=== PATIENT | female | born 1945 | race Caucasian/White ===

== ENCOUNTER → 2017-08-31 | Outpatient (CLI) | payer OTHER ==
[~2017-08-31] MED LIST: ADVAIR HFA 230M12 GM INH; AUGMENTIN 875875 MG PO; COMBIVENT INH; DUONEB 2.5-0.5 M3 ML INH; FLOMAX0.4 MG PO; LEVAQUIN 500 M500 M2 PO; PREDNISONE 10 M10 MG PO; PROTONIX40 M1 PO; SERTRALINE HCL50 MG PO; SINGULAIR 10 MG10 M1 PO; TYLENOL EXTRA500 MG PO
== END ==
LOC: M.RAD 08:55
DX: Z01.818 Encounter for other preprocedural examination (principal); R06.02 Shortness of breath

== ENCOUNTER 2018-03-06 07:42 | Inpatient (IN) | payer OTHER ==
[~2018-03-06] VITALS: Ht 152.4 cm; Wt 120.7 kg
[~2018-03-06 07:42] MED LIST changes: -ADVAIR HFA 230M12 GM INH
[2018-03-06 07:43] VITALS: BP 140/76
[2018-03-06] MEDS ORDERED: ADVAIR HFA 230M12 GM INH (07:50)
[2018-03-06 08:07] LABS: HEMATOCRIT 44.8 % (37.0-47.0); HEMOGLOBIN 14.9 gm/dL (12.0-15.0); MCH 30.1 pg (26.0-34.0); MCHC 33.2 g/dL (28.0-37.0); MCV 90.7 fL (80.0-100.0); MPV 8.3 fl. (7.2-11.1); NUCLEATED RBCS 0 /100WBC; PLATELET COUNT* 132 thou/uL (150-400); RBC 4.94 mil/uL (4.20-5.00); RDW-CV 14.2 % (10.5-14.5); WBC 14.9 thou/uL (4.0-11.0)
[2018-03-06 08:12] LABS: INFLUENZA A ANTIGEN None Detected (None Detect); INFLUENZA B ANTIGEN None Detected (None Detect)
[2018-03-06 08:15] LABS: ANION GAP 7 mmol/L (7-16); BUN 12 mg/dL (7-18); CALCIUM 8.1 mg/dL (8.5-10.1); CHLORIDE 105 mmol/L (98-107); CO2 28 mmol/L (21-32); GLUCOSE 110 mg/dL (70-99); SODIUM 140 mmol/L (136-145)
[2018-03-06 08:17] LABS: APTT 27.5 Seconds (25.0-31.3); INR 1.1
[2018-03-06 08:26] LABS: ALBUMIN 2.8 g/dL (3.4-5.0); ALKALINE PHOSPHATASE 88 U/L (46-116); LIPASE 202 U/L (73-393); MAGNESIUM 1.2 mg/dL (1.8-2.4); NT-PRO BRAIN NAT PEPTIDE 448 pg/mL (<300); SGOT 31 U/L (15-37); SGPT 30 U/L (30-65); TOTAL BILIRUBIN 1.1 mg/dL (<0.1-1.0); TOTAL PROTEIN 6.7 g/dL (6.4-8.2); TROPONIN-I LEVEL <0.06 ng/mL (<0.06)
[2018-03-06 08:29] LABS: BE -2.5 mmol/L (-2 to +3); HCO3 21.5 mmol/L (22.0-26.0); PCO2 35.1 mmHg (35.0-45.0); PO2 60.2 mmHg (75.0-100.0); pH 7.404 (7.340-7.450)
[2018-03-06 08:43] LABS: ABSOLUTE LYMPHOCYTES 0.4 thou/uL (0.8-5.3); ABSOLUTE MONOCYTES 0.6 thou/uL (0.0-1.2); ABSOLUTE NEUTROPHILS 13.9 thou/uL (1.6-8.1); PLATELET ESTIMATE ADEQUATE
--- NOTE | 2018-03-06 08:43 | NUR ---
PT INCONTINENT OF URINE AND STOOL. PT ASSISTED WITH CLEANING UP AND GIVEN CLEAN UNDERWEAR
[2018-03-06 08:56] LABS: URINE BILIRUBIN NEGATIVE (Negative); URINE BLOOD 2+ (Negative); URINE CLARITY CLEAR; URINE COLOR YELLOW; URINE GLUCOSE-RANDOM NEGATIVE (Negative); URINE KETONES NEGATIVE (Negative); URINE PROTEIN 1+ (Negative); URINE UROBILINOGEN 0.2 E.U./dl (0.2-1.0)
[2018-03-06 09:04] LABS: URINE LEUKOCYTES-REFLEX 3+ (Negative); URINE NITRITE-REFLEX POSITIVE (Negative)
[2018-03-06 09:11] LABS: SQUAMOUS 4-10 Moderate /LPF (0-3); URINE WBC-REFLEX >25 Many /HPF (0-5)
[2018-03-06 09:12] LABS: BACTERIA-REFLEX >30 Many /HPF (None Seen); CASTS None Seen /LPF (None Seen); CRYSTALS None Seen /LPF (None Seen); MUCUS None Seen strn/LPF (None Seen)
[2018-03-06 10:25] VITALS: BP 148/67
[2018-03-06 12:00] VITALS: BP 100/54
--- NOTE | 2018-03-06 12:27 | NUR ---
RECIEVED REPORT FROM NIKKO MAHONEY IN ER OF EXPECTED TRANSFER AT 1015- DX: RESPIRATORY FAILURE, COPD EXACERBATION, BRONCHITIS, AND UTI- PT ARRIVED TO ROOM 231 VIA CART WITH ASSIST X1 TO BED- UNDER THE CARE OF - BUNG REMOVER PLACED INDICATED, TRACING SR/ST- UPON ASSESSMENT PT NOTED TO BE A&O X4- CONTINENT OF BOWEL AND BLADDER- SBA WITH TRANSFERS FOR SAFETY- WHEEZING NOTED WITH NON-PRODUTIVE COUGH- LABORED BREATHING NOTED AT TIME- DYSPNEA NOTED ON EXERTION- VS 99.7 22 136/66 87 96% ON 2L VIA NC- ABDOMEN OBESE/SOFT/NON-TENDER, BS X 4 QUADS- PT REPORTS TO HAVE HAD GOOD SIZE BM THIS AM- TRACE EDEMA NOTED TO BLE- IV NOTED TO LEFT FA INTACT, IVF STARTED UPON ADMISSION PRESCIBED- PT NOTED TO HAVE RECIEVED IV ABT PRIOR TO TRANSFER FROM ER- SKIN C/D/I, SLIGHT PINKNESS NOTED TO BUTTOCKS- EYE SIGHT ADEQUITE WITH GLASSES IN PLACE- NOTED TO HAVE UPPER ANE LOWER DENTURES- PT RATES PAIN 5/10 TO LEFT UPPER ABD QUAD THAT COMES AND GOES- CALL LIGHT AND PERSONAL BELONGINGS WITH IN REACH- HOURLY ROUNDS IN PLACE R/T SAFETY/NEEDS- ALL NEEDS MET AT THIS TIME-WCTM
[2018-03-06 16:00] VITALS: BP 133/49
--- NOTE | 2018-03-06 16:50 | NUR ---
PT YANET SETTING UP ON SIDE OF BED WITH DAUGHTER AT SIDE VISITING- VEGETABLE HARVEST WORKER IN PLACE ORDERED, TRACING ST/SR THIS SHIFT- IV TO RIGHT WRIST INTACT, IVF INFUSSING PRESCRIBED- MG NOTED TO BE 1.2 ON ADMISSION- ORDERS OBTAINED PER FOR ELECTROLYTE PROTOCOL- IV MAG CURRENTLY INFUSSING INDICATED, WITH LAB DRAW TO FOLLOW- GOOD PO INTAKE NOTED WITH MEALS- MAKES NEEDS KNOWN- ALL NEEDS MET AT THIS TIME-WCTM
--- NOTE | 2018-03-06 18:14 | EKG ---
[place] [address] ELECTROCARDIOGRAM REPORT Name: Julisa LEAL Room: [address] ADM IN R.#: [id number] Admission: 03/06/18 Attend Phys: Phoebe Aiken Discharge: Date of : 43 Report #: [id number] THIS REPORT FOR: //name// [facility] ED Test Date: 2018-03-06 Test Time: 08:20:50 Pat Name: Julisa LEAL Department: Room: [facility] Gender: F Student Outreach Coordinator: MACARIO : 1945 Requested By: Schuyler Macias Order Number: [id number] MD: Gold Rosales Measurements Intervals Proctor Rate: 108 P: 67 FL: 164 QRS: 2 QRSD: 92 T: 63 QT: 324 QTc: 435 Interpretive Statements Sinus tachycardia poor r wave progression Atrial premature complexes Low voltage, extremity and precordial leads Baseline wander in lead(s) V4 Compared to ECG 08/08/2015 09:20:41 no change Electronically Signed On 03-06-2018 18:14:06 CDT by Gold Rosales [email or web address] <ELECTRONICALLY SIGNED> By: Gold Rosales MD, [facility] 03/06/18 1814 0820 Gold Rosales MD, [facility] /EPI
[2018-03-06 20:00] VITALS: BP 115/54
[2018-03-06 23:55] VITALS: BP 142/67
[2018-03-07 04:00] VITALS: BP 108/38
[2018-03-07 05:16] LABS: HEMATOCRIT 42.4 % (37.0-47.0); HEMOGLOBIN 13.6 gm/dL (12.0-15.0); MCH 29.3 pg (26.0-34.0); MCHC 32.1 g/dL (28.0-37.0); MCV 91.3 fL (80.0-100.0); MPV 8.8 fl. (7.2-11.1); RBC 4.65 mil/uL (4.20-5.00); RDW-CV 14.3 % (10.5-14.5); WBC 14.9 thou/uL (4.0-11.0)
--- NOTE | 2018-03-07 06:27 | NUR ---
ASSUMED PT CARE REPORT RECEIVED FROM NURSE. PT IS ALERT AWAKE ORIENTED X4 SINUS RYTHM ON THE MONITOR. SHE SOUNDS CONGESTED . SOLUMEDROL ADMISTERED. IN NS IINFUSING AT 100 PER HOUR. IV LINE PATENT, DRESSING WAS CHANGED. ON 2 L NC AND SATURATION REMAINS ABOVE 95%. PT COMPLAINT OF PAIN IN RIGHT LOWER QUADRANT LAST NIGHT. TYLENOL WS GIVEN. NO MORE PAIN AT THIS MOMENT. SHE SLEPT DURING THE NIGHT. CALL LLIGHT AT REACH,BED IN LOWEST POSITION.
[2018-03-07 07:41] VITALS: BP 114/64
--- NOTE | 2018-03-07 09:42 | NUR ---
ASSUMED CARE OF PT THIS AM AROUND 07- GLOVE EXAMINER IN PLACE ORDERED, TRACING SR WITH PAC'S THIS AM- UPON ASSESSMENT PT NOTED TO BE RESTING IN BED, WATCHING TV- PT A&O X4- CONTINENT OF BOWEL AND BLADDER- SBA WITH TRANSFERS FOR SAFETY- EXPIRATORY WHEEZING NOTED- DYSPNEA NOTED ON EXERTION- VSS, O2 SAT 93% ON 2L VIA NC- ABDOMEN OBESE/SOFT/NON-TENDER, BS X 4 QUADS- LAST BM REPORTED 03/06/18- +1 BLE NON-PITTING EDEMA NOTED- IV NOTED TO LEFT FA INTACT, IVF INFUSSING PRESCIBED- IV ABT GIVEN THIS AM, WITH NO ADVERSE REACTIONS TO NOTE- BLOOD CULTURES NEGATIVE- PT RATES PAIN 4/10 TO RIGHT UPPER QUAD INTERMITENT-GOOD PO INTAKE NOTED THIS AM WITH BREAKFAST- CALL LIGHT AND PERSONAL BELONGINGS WITH IN REACH- HOURLY ROUNDS IN PLACE R/T SAFETY/NEEDS- ALL NEEDS MET AT THIS TIME-WCTM
[2018-03-07 12:00] VITALS: BP 120/57
[2018-03-07 16:00] VITALS: BP 131/87
--- NOTE | 2018-03-07 16:00 | NUR ---
SPOKE WITH PT.AND DAUGHTER,EDEN. PT.WAS ALERT AND ORIENTED. HAD O2 ON. SHE SAID SHE LIVES ALONE. IS PLANNING ON RETURNING HOME AT [facility]. SHE HAS HOME O2 AND NEBULIZER THROUGH [facility]. SHE WEARS HER O2 ALL THE TIME. SHE ALSO USES A WALKER WHEN SHE GOES TO TOWN. SHE DRIVES, COOKS, CLEANS. HER CHILDREN HELP HER WITH TRASH,LITTER BOX,VACUUMING,ETC. SHE HAS NEVER HAD HOME HEALTH BEFORE.CM WILL FOLLOW FOR ANY DISCHARGE NEEDS.
--- NOTE | 2018-03-07 16:47 | NUR ---
PT YANET RESTING IN BED, FAMILY AT SIDE VISITING- DYE EXPERT IN PLACE ORDERED, TRACING SR- IV TO LEFT FA INTACT, IVF INFUSING PRESCIBED- GOOD PO INTAKE NOTED WITH MEALS THIS SHIFT- UP TO SIDE OF BED WITH MEALS, TOLERATING WELL THIS SHIFT- DENIES ANY C/O PAIN/DISCOMFORT AT THIS TIME- MAKES NEEDS KNOWN- ALL NEEDS MET AT THIS TIME-WCTM
[2018-03-07 19:50] VITALS: BP 143/77
--- NOTE | 2018-03-07 22:59 | NUR ---
ASSUMED CARE OF PT AT 1900. PT IS ALERT AND ORIENTED. VSS. PERRLA. NO COMPLAINTS OF PAIN. PT IS IN SINUS RYTHM ON THE TELEMETRY. PT IS RESTING COMFORTABLY IN BED. RESPIRATIONS ARE EVEN AND NONLABORED. WILL CONTINUE TO MONITOR PT.
[2018-03-07 23:36] VITALS: BP 99/31
[2018-03-08 03:54] VITALS: BP 153/75
[2018-03-08 08:00] VITALS: BP 107/45
--- NOTE | 2018-03-08 12:00 | NUR ---
CONTINUE TO FOLLOW, MET WITH PT. STATES FEELING MUCH IMPROVED. HOPES TO GO HOME SOON. PT DENIES ANY DC NEEDS, HAS O2 AND NEB. DECLINES HH.
[2018-03-08 12:01] VITALS: BP 108/46
[2018-03-08 16:00] VITALS: BP 118/49
--- NOTE | 2018-03-08 18:42 | NUR ---
MARIANET RESTNG IN CHAIR IN ROOM. UP AD ROSA IN ROOM. IV CURRENTLY NOT WORKING AND PATIENT NOT WANTING NEW IV ACCESS. HOURLY ROUNDING COMPLETED FOR PATINET SAFETY. PATINET UTILIZING 2L PER NASAL CANULA, SHE DOES AT HOME. PATIENT IS ANTICIPATING DISCHARGE TO HOME TOMORROW.
[2018-03-08 20:00] VITALS: BP 117/68
[2018-03-09] VITALS: BP 110/46
[2018-03-09 03:41] VITALS: BP 115/42
[2018-03-09 06:01] LABS: HEMATOCRIT 39.3 % (37.0-47.0); HEMOGLOBIN 12.6 gm/dL (12.0-15.0); MCH 29.3 pg (26.0-34.0); MCHC 32.1 g/dL (28.0-37.0); MCV 91.5 fL (80.0-100.0); MPV 8.9 fl. (7.2-11.1); RBC 4.29 mil/uL (4.20-5.00); RDW-CV 14.8 % (10.5-14.5); WBC 11.2 thou/uL (4.0-11.0)
[2018-03-09 06:05] LABS: CALCIUM 8.3 mg/dL (8.5-10.1); CREATININE 0.8 mg/dL (0.6-1.3); MAGNESIUM 1.8 mg/dL (1.8-2.4); POTASSIUM 4.3 mmol/L (3.5-5.1)
[2018-03-09 08:00] VITALS: BP 98/37
[2018-03-09 12:17] VITALS: BP 125/55
[2018-03-09] MEDS ORDERED: LEVAQUIN 500 M500 M2 PO (13:56)
[2018-03-09 14:01] VITALS: BP 125/55
== END 2018-03-09 15:00 | disposition home or self-care (01) | DRG 871 ==
LOC: M.ERS 07:42 → M.2W 09:14 → M.TBA-ER 09:14 → M.2W 10:35
PROVIDERS: Family Medicine; ADMIT Internal Medicine
DX: A41.9 Sepsis, unspecified organism (principal); J96.90 Respiratory failure, unspecified, unspecified whether with hypoxia or hypercapnia; J44.1 Chronic obstructive pulmonary disease with (acute) exacerbation; N39.0 Urinary tract infection, site not specified; Z68.43 Body mass index [BMI] 50.0-59.9, adult; R65.10 Systemic inflammatory response syndrome (SIRS) of non-infectious origin without acute organ dysfunction; K74.60 Unspecified cirrhosis of liver; F32.9 Major depressive disorder, single episode, unspecified; J40 Bronchitis, not specified as acute or chronic; E66.01 Morbid (severe) obesity due to excess calories; D72.829 Elevated white blood cell count, unspecified; Z86.19 Personal history of other infectious and parasitic diseases; Z90.710 Acquired absence of both cervix and uterus; Z90.49 Acquired absence of other specified parts of digestive tract; Z88.6 Allergy status to analgesic agent; Z88.2 Allergy status to sulfonamides; Z88.8 Allergy status to other drugs, medicaments and biological substances; Z82.49 Family history of ischemic heart disease and other diseases of the circulatory system; Z87.891 Personal history of nicotine dependence; Z79.899 Other long term (current) drug therapy; Z28.21 Immunization not carried out because of patient refusal; I95.89 Other hypotension